=== PATIENT | male | born 1960 | race Caucasian/White ===

== ENCOUNTER → 2017-08-25 | Outpatient (CLI) | payer OTHER ==
--- NOTE | 2017-08-25 15:35 | DIAGNOSTIC IMAGING REPORT ---
R KNEE 3 VIEWS CLINICAL HISTORY: I73.00 Raynaud's egerewuF89.0 IgoseL50.0 [id number] RIGHT KNEE PAIN COMPARISON: None. DISCUSSION: No fractures are visualized. There are mild osteoarthritic changes. There is no erosive disease. IMPRESSION: Mild degenerative change. No evidence of erosive disease. Electronically signed by: Kam Mitchell M.D. 08/25/2017 3:33 PM Dictated Date/Time: 08/25/2017 3:33 PM
--- NOTE | 2017-08-25 15:36 | DIAGNOSTIC IMAGING REPORT ---
L HAND MIN 3 VIEWS ROUTINE CLINICAL HISTORY: I73.00 Raynaud's gezpnoiN63.0 YkaxzN33.0 KhplksnjqvwgsWavhQLH132 LEFT HAND PAIN COMPARISON: None. DISCUSSION: The bones are mildly osteopenic. No acute fractures are visualized. There are arthritic changes present within the wrist. There is equivocal chondrocalcinosis at the level of the triangular fibrocartilage. There are no erosive changes within the hands. IMPRESSION: 1. Osteopenia 2. Arthritic changes most pronounced within the wrist 3. No evidence of erosive disease within the hand. Electronically signed by: Kam Mitchell M.D. 08/25/2017 3:35 PM Dictated Date/Time: 08/25/2017 3:34 PM
--- NOTE | 2017-08-25 15:37 | DIAGNOSTIC IMAGING REPORT ---
L KNEE 3 VIEWS CLINICAL HISTORY: I73.00 Raynaud's bysagypY28.0 VnpceW97.0 [id number] LEFT KNEE PAIN COMPARISON: None. DISCUSSION: No fractures or dislocations are visualized. There are minimal degenerative changes. There is no erosive disease. IMPRESSION: 1. Minimal degenerative change. No evidence of fracture. No evidence of erosive disease Electronically signed by: Kam Mitchell M.D. 08/25/2017 3:36 PM Dictated Date/Time: 08/25/2017 3:35 PM
--- NOTE | 2017-08-25 15:47 | DIAGNOSTIC IMAGING REPORT ---
R HAND MIN 3 VIEWS ROUTINE CLINICAL HISTORY: I73.00 Raynaud's xdbzotpD23.0 HhdctZ34.0 [id number] RIGHT HAND PAIN COMPARISON: None. DISCUSSION: No acute fractures or dislocations are visualized. There is an old deformity of the fifth metacarpal. The bones are mildly osteopenic. There are arthritic changes present the level of the distal radial ulnar joint. There are tiny corticated bony fragment just distal to the distal radial ulnar joint. Mild degenerative changes are also present the level the first carpal metacarpal joint. IMPRESSION: 1. Mild degenerative changes within the wrist. No acute fractures. No evidence of erosive disease. Electronically signed by: Kam Mitchell M.D. 08/25/2017 3:45 PM Dictated Date/Time: 08/25/2017 3:44 PM
--- NOTE | 2017-08-25 15:48 | DIAGNOSTIC IMAGING REPORT ---
R WRIST MIN 3 VIEWS ROUTINE CLINICAL HISTORY: I73.00 Raynaud's jxqhjqyD09.0 OndcpD67.0 [id number] RIGHT WRIST PAIN COMPARISON: None. DISCUSSION: The bones are osteopenic. There are no acute fractures. Degenerative changes are present within the distal radial ulnar joint. There are tiny corticated bony fragments located adjacent the distal aspect of the distal radial ulnar joint. There is a small lucency within the lunate, possibly representing a subchondral cyst. There is narrowing of the capitate lunate articulation. IMPRESSION: 1. Degenerative type change. No acute fractures. No evidence of erosive disease. Electronically signed by: Kam Mitchell M.D. 08/25/2017 3:47 PM Dictated Date/Time: 08/25/2017 3:46 PM
[2017-08-25 16:06] LABS: RHEUMATOID FACTOR < 10.0 U/mL (0-15); TOTAL IRON BINDING CAPACITY 361 mcg/dl (250-450)
[2017-08-25 16:53] LABS: URINE APPEARANCE CLOUDY (CLEAR); URINE COLOR DK YELLOW; URINE EPITHELIAL CELL AUTO >30 /lpf (0-5); URINE NITRITE NEG (NEG); URINE SPECIFIC GRAVITY 1.029 (1.000-1.030); UROBILINOGEN NEG (NEG)
[2017-08-25 17:23] LABS: MANUAL MICROSCOPIC REQUIRED? NO; REVIEW REQ? YES
[2017-08-25 17:25] LABS: URINE BILIRUBIN NEG (NEG)
== END | disposition home or self-care (01) ==
LOC: C.LAB1850 14:54
PROVIDERS: ATTEND Internal Medicine Rheumatology
DX: I73.00 Raynaud's syndrome without gangrene (principal); L93.0 Discoid lupus erythematosus; M13.0 Polyarthritis, unspecified

== ENCOUNTER → 2017-09-21 | Outpatient (CLI) | payer OTHER ==
[2017-09-21 17:51] LABS: BASO % 0.5 %; BASO ABS # 0.04 K/uL (0-0.2); COMPLETE YES; EOS % 6.7 %; HEMATOCRIT 45.6 % (42-52); IG% 0.1 %; LYMPH % 24.2 %; LYMPH ABS # 2.01 K/uL (1.2-3.4); MEAN CORPUSCULAR HEMOGLOBIN 28.2 pg (25-34); MONO % 6.1 %; NEUT % 62.4 %; PLATELET COUNT 211 K/uL (130-400); RED BLOOD COUNT 5.18 M/uL (4.7-6.1)
[2017-09-21 18:08] LABS: BLOOD UREA NITROGEN 24 mg/dl (7-18); GLUCOSE 112 mg/dl (70-99)
[2017-09-21 18:09] LABS: BUN/CREATININE RATIO 26.6 (10-20); CALCIUM 9.6 mg/dl (8.5-10.1); CARBON DIOXIDE 26 mmol/L (21-32); CHLORIDE 104 mmol/L (98-107); MAGNESIUM 2.3 mg/dl (1.8-2.4); POTASSIUM 4.2 mmol/L (3.5-5.1); SODIUM 140 mmol/L (136-145)
== END | disposition home or self-care (01) ==
LOC: C.LABPBG 11:25
PROVIDERS: ATTEND Family Medicine
DX: R42 Dizziness and giddiness (principal)